=== PATIENT | female | born 1985 | race Caucasian/White ===

== ENCOUNTER 2023-09-02 19:00 | Inpatient (IN) | payer BC ==
[2023-09-02] MEDS ORDERED: Carboprost 250 MCG/ML AMP IM PRN (20:28)
[2023-09-02] MEDS ORDERED: Zolpidem Tartrate 5 MG TAB PO PRN (20:28)
[2023-09-02] MEDS ORDERED: Misoprostol 200 MCG TAB PR PRN (20:28)
[2023-09-02] MEDS ORDERED: Diphenoxylate HCl/Atropine Tablet PO PRN ×2 (20:28)
[2023-09-02] MEDS ORDERED: fentaNYL 50 mcg/mL 1 mL Vial SLOW IVP PRN (20:28)
[2023-09-02] MEDS ORDERED: Ibuprofen 800 MG TAB PO PRN (20:28)
[2023-09-02] MEDS ORDERED: Methylergonovine 0.2 MG/ML VIAL IM PRN (20:28)
[2023-09-02] MEDS ORDERED: hydrALAZINE 20 MG/ML VIAL SLOW IVP PRN (20:28)
[2023-09-02] MEDS ORDERED: Promethazine HCl 25 MG/ML VIAL IM PRN (20:28)
[2023-09-02] MEDS ORDERED: Tranexamic Acid 1,000 MG/10 ML VIAL IVP PRN (20:28)
[2023-09-02] MEDS ORDERED: HYDROcodone/Acetaminophen 5/325 mg Tablet PO PRN ×2 (20:28)
[2023-09-02] MEDS ORDERED: Lidocaine 1% (PF) 30 ML VIAL SC PRN (20:28)
[2023-09-02 20:39] VITALS: BMI 31.5
[2023-09-02] MEDS ORDERED: Oxytocin 30 units/NS 500 ML 500 ML IV SCH ×2 (21:00)
[2023-09-02] MEDS: Lactated Ringer's 1,000 ML IV SCH (21:10)
[2023-09-02 21:34] LABS: Hematocrit 34.1 % (34.9-44.5); Hemoglobin 11.3 g/dL (12.0-15.5); Mean Corpuscular HGB CONC 33.1 g/dL (32.0-36.0); Mean Corpuscular Volume 84.6 fL (81.6-98.3); Mean Platelet Volume 9.8 fL (7.4-10.4); Platelet Count 273 10x3/uL (150-450); RBC Distribution Width 13.3 % (11.5-14.5); Red Blood Cell (RBC) Count 4.03 10x6/uL (3.90-5.03); White Blood Cell (WBC) Count 12.5 10x3/uL (3.5-10.5)
[2023-09-02] MEDS: Penicillin G Potassium 5 MILL.UNITS in Sodium Chloride 0.9% 100 ML IVPB SCH (21:49)
[2023-09-02 22:15] LABS: HBsAg Index 0.14 S/CO (0-0.99); Hep B Surf Ag - L&D Non-Reactive S/CO (NonReactive); Syphilis Antibody Nonreactive (Nonreactive); Syphilis Antibody Index 0.06 S/CO (<1.00 Non-Reactive)
[2023-09-02] MEDS: Ondansetron PF 4 MG/2 ML Vial IVP PRN (22:42)
[2023-09-03] MEDS: Penicillin G 2.5 MILL.units 2.5 MILL.UNITS in Premix 1 BAG IVPB SCH (02:51)
[2023-09-03] MEDS: Acetaminophen 500 MG TAB PO PRN (02:55)
[2023-09-03] MEDS: Misoprostol 100 MCG TAB VAG SCH (05:41)
[2023-09-03] MEDS: Calcium Carbonate 500 MG ChewTAB PO SCH (12:22)
[2023-09-03] MEDS ORDERED: fentaNYL/Ropivacaine Epidural 100 ML ONE (15:41)
[2023-09-03] MEDS ORDERED: Ondansetron PF 4 MG/2 ML Vial IVP PRN (16:53)
[2023-09-03] MEDS ORDERED: Moisturizing Cream (Eucerin) 113 GM JAR TOP PRN (16:53)
[2023-09-03] MEDS ORDERED: Acetaminophen 325 MG TAB PO PRN (16:53)
[2023-09-03] MEDS ORDERED: Lactated Ringer's 500 ML IV PRN (16:53)
[2023-09-03] MEDS ORDERED: ePHEDrine Sulfate 50 MG/10 ML VIAL SLOW IVP PRN (16:53)
[2023-09-03] MEDS ORDERED: diphenhydrAMINE 50 MG/ML VIAL IVP PRN (16:53)
[2023-09-03] MEDS ORDERED: Naloxone HCl 0.4 mg/ml Vial IVP PRN ×2 (16:53)
[2023-09-03] MEDS ORDERED: Promethazine HCl 25 MG/ML VIAL IM PRN (16:53)
[2023-09-03] MEDS: fentaNYL 2 mcg/Ropivacaine 0.2% Epidural 100 ML CADD EPIDURAL SCH (17:00)
[2023-09-03] MEDS ORDERED: Communication Order-Pharmacy FS SCH (17:00)
[2023-09-03] MEDS ORDERED: hydrALAZINE 20 MG/ML VIAL SLOW IVP PRN (22:04)
[2023-09-03] MEDS ORDERED: Bisacodyl 10 MG SUPP PR PRN (22:04)
[2023-09-03] MEDS ORDERED: Milk Of Magnesia 30 ML UDCUP PO PRN (22:04)
[2023-09-03] MEDS ORDERED: Benzocaine-Menthol 82.5 ML CAN TOP PRN (22:04)
[2023-09-03] MEDS ORDERED: diphenhydrAMINE 25 MG CAP PO PRN (22:04)
[2023-09-03] MEDS ORDERED: Boostrix 0.5 ML (Tdap) VIAL (>/=7 yrs of age) IM ONE (22:04)
[2023-09-03] MEDS ORDERED: traMADol HCl 50 MG TAB PO PRN (22:04)
[2023-09-03] MEDS ORDERED: Preparation H Ointment 28 GM TUBE PR PRN (22:04)
[2023-09-03] MEDS ORDERED: Lanolin Ointment 7 GM TUBE TOP PRN (22:04)
[2023-09-03] MEDS: Ibuprofen 800 MG TAB PO SCH (23:45)
[2023-09-03] MEDS: Docusate 100 MG CAP PO SCH (23:45)
[2023-09-04] MEDS: Prenatal Vitamin 1 TAB PO SCH (08:45)
[2023-09-04] MEDS: Docusate 100 MG CAP PO SCH (08:46)
[2023-09-04] MEDS: Ibuprofen 800 MG TAB PO SCH (08:46)
[2023-09-04] MEDS: Ferrous Sulfate 325 MG TAB PO SCH (08:47)
[2023-09-04 17:21] VITALS: TEMP 98.2
[2023-09-04 21:33] VITALS: BP 117/71
== END 2023-09-04 20:45 | disposition home or self-care (01) | DRG 807 ==
LOC: CSHLD 20:14 → CSHPP 09-03 21:40
PROVIDERS: ADMIT Obstetrics & Gynecology; ATTEND Obstetrics & Gynecology
PROC: 3E0P7VZ Introduction of Hormone into Female Reproductive, Via Natural or Artificial Opening (ICD-10-PCS; 2023-09-02)
PROC: 10E0XZZ Delivery of Products of Conception, External Approach (ICD-10-PCS; principal; 2023-09-03)
PROC: 0HQ9XZZ Repair Perineum Skin, External Approach (ICD-10-PCS; 2023-09-03)
PROC: 3E033XZ Introduction of Vasopressor into Peripheral Vein, Percutaneous Approach (ICD-10-PCS; 2023-09-03)
DX: O99.824 Streptococcus B carrier state complicating childbirth (principal); Z37.0 Single live birth; O70.0 First degree perineal laceration during delivery; Z3A.39 39 weeks gestation of pregnancy
CPT/HCPCS: 85027; 86780; 86850; 86900; 86901; 87340; J2405; J2540; J3490; J7120